=== PATIENT | male | born 1940 | race Caucasian/White ===

== ENCOUNTER → 2018-06-13 | Day surgery (SDC) | payer OTHER ==
[2018-05-05 13:21] VITALS: Ht 188 cm; Wt 86.4 kg
[~2018-06-13] VITALS: Ht 188 cm; Wt 86.4 kg
[~2018-06-13] MED LIST: 500ML BSS 0.3ML EPI 1:1000PF IRRIG ONE; ACETAMINOPHEN 325 MG TAB PO PRN; AMVISC PLUS 0.8ML SYRINGE INT OCU ONE; ATROPINE SULFATE 0.1 MG/ML 5ML SYR IV PRN; BRIMONIDINE TART 0.2% OP SOLN PER DROP CHARGE ONE; BSS FLUSH ONE; CALC500C70 PO; ENDOCOAT 0.85ML SYRINGE INT OCU ONE; EpHEDrine SULFATE INJ 50 MG/ML AMP IV PRN; EpINEphrine INJ 1MG/ML AMP 1 MG/ML AMP ONE; FENTANYL CITRATE INJ 50 MCG/1 ML 2 ML VIAL ONE; HydrALAZINE HCL 20 MG/ML VIAL ONE; LACTATED RINGER'S 1000ML 500 ML IV SCH; LIDOCAINE 4% OP SOLN DROP CHARGE ONE; LIDOCAINE 4% OP SOLN DROP CHARGE OPR SCH; LIDOCAINE HCL 1% MPF 2 ML VIAL ONE; LISI40TA PO; MIDAZOLAM HCL 1 MG/ML 2ML VIAL ONE; MOXIFLOXACIN OPH SOLN PER DROP CHARGE ONE; MULT-506 PO; POVIDONE-IODINE OP SOLN 30 ML BTL ONE; PROPARACAINE 0.5% OP SOLN PER DROP CHARGE OPR SCH; SILD100T PO; TOBRAMYCIN/DEXAMETHASONE OPH OINT PER APPLN CHARGE ONE; VITA400C28 PO
--- NOTE | 2018-06-13 09:53 | History & Physical Bridge - [place] ---
H&P Re-Evaluation Bridge Note: I have examined the patient, reviewed the History & Physical and in the interval since the performance of the History & Physical I have noted the following changes of clinical significance: No changes noted
[2018-06-13] MEDS: PHENYLEPHRINE HCL 2.5% OP SOLN PER DROP CHARGE OPR SCH ×2 (10:07→10:12)
[2018-06-13] MEDS: TROPICAMIDE 1% OP SOLN PER DROP CHARGE OPR SCH ×2 (10:08→10:13)
[2018-06-13] MEDS: CYCLOPENTOLATE HCL 1% OP SOLN PER DROP CHARGE OPR SCH ×2 (10:09→10:14)
[2018-06-13] MEDS: KETOROLAC 0.5% OP SOLN PER DROP CHARGE OPR SCH ×2 (10:10→10:15)
[2018-06-13] MEDS: MOXIFLOXACIN OPH SOLN PER DROP CHARGE OPR SCH ×2 (10:11→10:24)
--- NOTE | 2018-06-13 11:27 | [facility] Operative Report ---
Operative Report Operative Date Jun 13, 2018. Pre-Operative Diagnosis Cataract Right Eye Post-Operative Diagnosis Same as Pre Op Procedure(s) Performed Right Cataract Phacoemulsification With Intraocular Lens Implant Surgeon Dr. Key [employer] Ii Assembler Surgeon(s) none Estimated Blood Loss 0ml Findings cataract right eye Specimens None Drains None Anesthesia Type MAC Complication(s) none Disposition no Recovery Room / PACU Indications decreased vision right eye Description of Procedure After informed consent was obtained in the holding area the patient was wheeled back to the operating room where cardiac monitoring leads and oxygen by nasal cannula was administered by Anesthesia. Gentle IV sedation was given, and the patient's right eye was prepped and draped in usual sterile fashion. A wire lid speculum was placed into the right eye and the operating microscope was swung into position. Using 0.12 forceps and a Supersharp blade a paracentesis port was made 2 o'clock hours away from the 9 o'clock position of the patient's right eye. 1% non-preserved Lidocaine was then injected into the anterior chamber for anesthesia. A 2.0 mm keratotome blade was then used to make a shelved clear corneal incision at the 9 o'clock position of the right eye. Amvisc was injected into the anterior chamber and a cystotome and Utrata forceps were used to perform a curvilinear capsulorrhexis. BSS on a hydrodissection cannula was used to hydrodissect the lens nucleus away from the capsular bag. The phacoemulsification handpiece was then used in a stop and chop fashion to remove the lens nucleus. The irrigation and aspiration handpiece was then used to remove the residual cortical material. Amvisc was injected into the capsular bag and anterior chamber and a Bausch [employer] Lomb MX60E 19.5 Diopter intraocular lens was injected into the capsular bag. Irrigation and aspiration handpiece was used to remove the residual viscoelastic material. The wounds were hydrated and noted to be watertight. The wire lid speculum was removed from the eye. Vigamox, Brimonidine, and TobraDex ointment were placed on the eye and it was shielded. It should be noted that EndoCoat was used extensively during the case to protect the cornea endothelium. DISPOSITION: The patient tolerated the procedure well and was wheeled to the post anesthesia care unit in stable condition. I attest to the content of the Intraoperative Record and any orders documented therein. Any exceptions are noted below. I attest to the content of the Intraoperative Record and any orders documented therein. Any exceptions are noted below.
--- NOTE | 2018-06-13 11:29 | Discharge Instructions-SurgCtr ---
Discharge Instructions Date of Service Jun 13, 2018. Visit Reason for Visit: Cataract Right Eye Discharge Discharge Diagnosis / Problem: cataract right eye Discharge Goals Goal(s): Improve function Activity Recommendations Activity Limitations: per Instructions/Follow-up section Lifting Limitations: no more than 5 pounds Anesthesia . Post Anesthesia Instructions: If you have had General Anesthesia or IV Sedation: * Do not drive today. * Resume driving when surgeon permits. * Do not make important decisions or sign legal documents today. * Call surgeon for: 1. Temperature elevations greater than 101 degrees F. 2. Uncontrollable pain. 3. Excessive bleeding. 4. Persistent nausea and vomiting. 5. Medication intolerance (nausea, vomiting or rash). * For nausea and vomiting use only clear liquids such as: tea, soda, bouillon until nausea subsides, then gradually increase diet as tolerated. * If you have any concerns or questions, call your surgeon's office. If physician is unavailable and it is an emergency, call 911 or go to the nearest emergency room. . Instructions / Follow-Up Instructions / Follow-Up ACTIVITY RECOMMENDATIONS: * Light activities * You may walk outside, read, watch television. * Mild irritation and blurred vision are common for the first few days, redness around the white part of the eye is common. MEDICATIONS: Resume previous medications unless instructed otherwise by your surgeon. Eye drops (today and tomorrow): Cipro - one drop in operative eye every 2 hours while awake Prednisolone 1% - one drop in operative eye every 2 hours while awake Ketorolac - one drop in operative eye every 2 hours while awake SPECIAL CARE INSTRUCTIONS: * If any problems or concerns, please call Dr. Key's office at . * Keep plastic shield taped over eye to sleep at night. * Keep plastic shield taped over eye except to administer eye drops. * Keep plastic shield on until office visit the following day. FOLLOW UP VISIT: Follow-up with Dr. Key in the [place] office as scheduled. If not already scheduled, please call the office at . Diet Recommendations Home Diet: resume previous diet Procedures Procedures Performed: Right Cataract Phacoemulsification With Intraocular Lens Implant Pending Studies Studies pending at discharge: no Medical Emergencies . Who to Call and When: Medical Emergencies: If at any time you feel your situation is an emergency, please call 911 immediately. . Non-Emergent Contact Non-Emergency issues call your: D[employer] . . "Provider Documentation" section prepared by Adan Key. .
--- NOTE | 2018-06-13 11:39 | Anesthesia Progress Nt - [facility] ---
Anesthesia Post Op Note Date & Time Jun 13, 2018 at 11:39 Vital Signs Pain Intensity: 0 Vital Signs Past 12 Hours Date Time Temp Pulse Resp B/P (MAP) Pulse Ox O2 Delivery O2 Flow Rate FiO2 06/13/18 11:36 37 73 14 152/81 (104) 98 Room Air 06/13/18 09:53 36.7 56 16 145/94 (111) 99 Room Air Notes Mental Status: alert / awake / arousable, participated in evaluation Nausea / Vomiting: adequately controlled Pain: adequately controlled Airway Patency, RR, SpO2: stable & adequate BP & HR: stable & adequate Hydration State: stable & adequate Anesthetic Complications: no major complications apparent
[2018-06-13 11:51] VITALS: BP 136/72; PULSE 54; O2SAT 97
== END | disposition home or self-care (01) ==
LOC: X.SURG 09:10
PROVIDERS: ATTEND Ophthalmology
DX: H26.9 Unspecified cataract (principal); Z98.42 Cataract extraction status, left eye; Z96.1 Presence of intraocular lens; I10 Essential (primary) hypertension; Z88.5 Allergy status to narcotic agent; Z88.8 Allergy status to other drugs, medicaments and biological substances

== ENCOUNTER 2019-09-29 07:33 | Inpatient (IN) ==
--- NOTE | 2019-08-29 14:24 | PAT Medication Instructions ---
Medication Instructions Date of Service August 29, 2019 Home Medications lisinopril 40 mg PO QAM multivitamin 1 tab PO QAM sildenafil [Viagra] 100 mg PO DAILY PRN calcium carbonate-vitamin D3 1 tab PO QAM cyanocobalamin (vitamin B-12) [Vitamin B-12] 500 mcg PO QAM magnesium 250 mg PO QAM turmeric root extract 500 mg PO QAM vitamin E 400 unit PO QAM zinc 50 mg PO QAM STOP taking 2 weeks before surgery (or as soon as possible if surgery is within 2 weeks) turmeric root extract 500 mg PO QAM vitamin E 400 unit PO QAM DO NOT take the morning of surgery lisinopril 40 mg PO QAM multivitamin 1 tab PO QAM sildenafil [Viagra] 100 mg PO DAILY PRN calcium carbonate-vitamin D3 1 tab PO QAM cyanocobalamin (vitamin B-12) [Vitamin B-12] 500 mcg PO QAM magnesium 250 mg PO QAM zinc 50 mg PO QAM Other Notes If you have any questions please call us at [phone] or [phone] or [phone] or [phone]
--- NOTE | 2019-08-30 10:52 | Anesthesiology Consultation ---
Date of Service August 30, 2019 Assessment & Plan (1) Encounter for pre-operative examination: - Awaiting review preop testing (labs, EKG, CXR). - Awaiting surgeon-ordered PCP preop evaluation (Tammy Landaverde PAC). - S/P Left TKA: 09/02/18: SAB at L3-L4 + PNB at [facility] Chart Review Chart Review: Patient seen in Pre Admission Testing Teaching & Discussion Pre-Anesthesia Teaching/Discussion Notes: Instructed NPO after midnight before surgery,except medications with 15 cc of water. Medication instructions provided according to the PAT guidelines. History Surgery Operation Date: 09/29/19 07:15 Proposed Procedures p Left STAR Total Ankle - Ramirez Guillen DO s Percutaneous Tendoachilles Lengthening, Application of Platelet Rich Plasma - Ramirez Guillen DO Height/Weight Height: 6 ft 1 in Weight: 81.6 kg Allergies Allergy/AdvReac Type Severity Reaction Status Date / Time celecoxib Allergy Intermediate RASH Verified 08/17/19 11:44 hydrocodone Allergy Intermediate RASH/ITCHIN Verified 08/17/19 11:44 G oxycodone Allergy Intermediate RASH/ITCHIN Verified 08/17/19 11:44 G Medications Home Medications Medication Instructions Recorded Confirmed Last Taken lisinopril 40 mg PO QAM 07/27/18 08/17/19 09/01/18 07:30 multivitamin 1 tab PO QAM 07/27/18 08/17/19 09/01/18 07:30 sildenafil [Viagra] 100 mg PO DAILY PRN 07/27/18 08/17/19 Unknown calcium carbonate-vitamin D3 1 tab PO QAM 08/17/19 08/17/19 Unknown cyanocobalamin (vitamin B-12) 500 mcg PO QAM 08/17/19 08/17/19 Unknown [Vitamin B-12] magnesium 250 mg PO QAM 08/17/19 08/17/19 Unknown turmeric root extract 500 mg PO QAM 08/17/19 08/17/19 Unknown vitamin E 400 unit PO QAM 08/17/19 08/17/19 Unknown zinc 50 mg PO QAM 08/17/19 08/17/19 Unknown Past Medical History Medical History Hypertension Osteoarthritis Exercise / Class Metabolic Activity II 4-5 Yardwork/Stairs/Walk up hill (one flight of stairs (no chest pain/no sob)) Past Surgical History Surgical History History of cataract extraction with lens replacement B/L History of laminectomy LUMBAR History of retinal detachment SURGICAL REPAIR - LEFT History of total knee replacement Left TKA: 09/02/18: SAB at L3-L4 + PNB at [facility] History of total right knee replacement Hx of colonoscopy Past Anesthesia History No Hx of Anesthesia Complications and No Family Hx of Anesthesia Complications History of PONV No Hx of PONV and No Hx of Motion Sickness Social History Smoking Status: Never smoker Do You Dip or Chew Tobacco: No Hx Alcohol Use: Yes Alcohol type: beer alcohol intake frequency: a few times a month Hx Substance Use: No substance use type: does not use Review of Systems Patient denies chest pain, shortness of breath, dyspnea on exertion, reflux, cough, wheezing, palpitations. Physical Exam Vital Signs VITALS BP 155/80 P 61 TEMP 97.9 SP02 98%RA RESP 18 PHYSICAL Full neck and c-spine range of motion. Full TMJ range of motion. TMD 3.5 finger breaths Mallampati Score 1 Dentition: full dentures on upper, several missing on lower Lungs: clear throughout to auscultation Cardiac: regular rate and rhythm, II/ systolic murmur Spine: normal Carotid arteries: negative bruit Extremities: no edema Testing Stress Test Date: 05/21/16 Type: exercise Findings: + WNL Resting EF: 61% Resting LV Function: normal Valvular Disease: MR (Mild) Negative for inducible ischemia by ECG and ECHO criteria. Patient denied chest discomfort reporting only shortness of breath at peak exercise. Baseline EKG demonstrates mild non specific ST abnormality. Stress EKG demonstrates upsloping ST segment change not meeting the criteria for ischemia. Mild aortic sclerosis without stenosis. Mild AVR. Gradient across aortic valve is mildly increased. Mild TR is present. Mild WA.
--- NOTE | 2019-08-30 11:44 | XRay Report ---
XR chest Pre-admission PA/Lat CLINICAL HISTORY: 78 years-old Male presenting with preoperative assessment, asymptomatic. TECHNIQUE: PA and lateral views of the chest were obtained. COMPARISON: 08/01/2018. FINDINGS: Cardiomediastinal silhouette normal. Lungs are hyperinflated. No focal opacity. No pleural effusion o r pneumothorax. Degenerative changes of the thoracic spine. Upper abdomen normal. IMPRESSION: 1. Findings suggest emphysema. No focal infiltrate to suggest pneumonia. Electronically signed by: Benton Fernandez M.D. 08/30/2019 11:42 AM
[2019-08-30 12:06] LABS: Basophils # (auto) 0.04 K/uL (0-0.2); Basophils % (auto) 0.6 %; Eosinophils # (auto) 0.12 K/uL (0-0.5); Eosinophils % (auto) 1.8 %; Hematocrit (blood only) 43.1 % (42-52); Hemoglobin 14.4 g/dL (14.0-18.0); Immature Granulocytes # (auto) 0.01 K/uL (0.00-0.02); Immature Granulocytes % (auto) 0.2 %; Lymphocytes # (auto) 1.68 K/uL (1.2-3.4); Lymphocytes % (auto) 25.7 %; Mean Corpuscular Hemoglobin 31.4 pg (25-34); Mean Corpuscular Hgb Conc 33.4 g/dL (32-36); Mean Corpuscular Volume 93.9 fL (80-100); Mean Platelet Volume 10.5 fL (7.4-10.4); Monocytes # (auto) 0.57 K/uL (0.11-0.59); Monocytes % (auto) 8.7 %; Neutrophils # (auto) 4.11 K/uL (1.4-6.5); Platelet Count 230 K/uL (130-400); RDW Standard Deviation 48.1 fL (36.4-46.3); Red Blood Count 4.59 M/uL (4.7-6.1); White Blood Count 6.53 K/uL (4.8-10.8)
[2019-08-30 12:12] LABS: Albumin Level 3.8 gm/dl (3.4-5.0); BUN Creatinine Ratio 17.7 (10-20); Calcium 9.1 mg/dl (8.5-10.1); Creatinine Clr Calc Pharmacy 66.2 ml/min; Est GFR (African American) 79.3; Est GFR (Non-African American) 68.4; Potassium 4.1 mmol/L (3.5-5.1)
[2019-08-30 12:25] LABS: Partial Thromboplastin Time 25.9 Seconds (21.0-31.0); Prothrombin Time 10.5 Seconds (9.0-12.0)
[2019-08-30 12:46] LABS: Estimated Average Glucose 117 mg/dl; Hemoglobin A1C 5.7 % (4.5-5.6)
[2019-08-30 16:35] LABS: Appearance Urine Clear (Clear); Bilirubin Urine Negative (Negative); Blood Urine Negative (Negative); Color Urine Yellow; Glucose Urine UA Negative (Negative); Ketones Urine Negative (Negative); Leukocyte Esterase Urine Negative (Negative); Nitrite Urine Negative (Negative); Protein Urine Negative (Negative); Specific Gravity Urine 1.009 (1.000-1.030); Urobilinogen Urine Negative (Negative); pH Urine 7.5 (4.5-7.5)
--- NOTE | 2019-09-28 17:46 | History & Physical Report ---
Date of Service September 28, 2019 Assessment & Plan (1) Osteoarthritis of ankle, left: Schedule a Left STAR Total Ankle, Percutaneous Tendoachilles Lengthening, Application of Platelet Rich Plasma. All potential risks, benefits, complications, alternatives, and rehab have been discussed with the patient and he wishes to proceed. He will be scheduled for 09.29.19 with plan for ASA 81 mg BID x 4 wks for DVT prophylaxis. (2) Acquired valgus deformity of left ankle: (3) Achilles tendon contracture, left: History of Present Illness Chief Complaint: left ankle pain Primary Care Provider: Tammy Landaverde PA-C This is a patient with chronic left ankle DJD that has been treated conservatively for many years. He has now failed conservative management, his pain has worsened affecting his ADL's. He is now being set up for surgical management. Allergies Allergy/AdvReac Type Severity Reaction Status Date / Time celecoxib Allergy Intermediate RASH Verified 08/17/19 11:44 hydrocodone Allergy Intermediate RASH/ITCHIN Verified 08/17/19 11:44 G oxycodone Allergy Intermediate RASH/ITCHIN Verified 08/17/19 11:44 G Home Medications Home Medications Medication Instructions Recorded Confirmed Type lisinopril 40 mg PO QAM 07/27/18 08/17/19 History multivitamin 1 tab PO QAM 07/27/18 08/17/19 History sildenafil [Viagra] 100 mg PO DAILY PRN 07/27/18 08/17/19 History calcium carbonate-vitamin D3 1 tab PO QAM 08/17/19 08/17/19 History cyanocobalamin (vitamin B-12) 500 mcg PO QAM 08/17/19 08/17/19 History [Vitamin B-12] magnesium 250 mg PO QAM 08/17/19 08/17/19 History turmeric root extract 500 mg PO QAM 08/17/19 08/17/19 History vitamin E 400 unit PO QAM 08/17/19 08/17/19 History zinc 50 mg PO QAM 08/17/19 08/17/19 History Past Med/Surg History Medical History Hypertension Osteoarthritis Surgical History History of cataract extraction with lens replacement B/L History of laminectomy LUMBAR History of retinal detachment SURGICAL REPAIR - LEFT History of total knee replacement Left TKA: 09/02/18: SAB at L3-L4 + PNB at [facility] History of total right knee replacement Hx of colonoscopy Social History Preferred Language: Tunisian Communication Ability: Effective Cemetery Warden Required: No Beliefs That Will Affect Care: None Current Living Situation: Spouse Feels Safe at Home: Yes Safety Concerns: Feels Safe At This Time Smoking Status: Never smoker Do You Dip or Chew Tobacco: No ; Second Hand Exp osure: Yes (WORKING AND SOCIALLY IN PAST) ; Hx Alcohol Use: Yes Alcohol type: beer Hx Substance Use: No Physical Exam Constitutional: well developed and well nourished; no acute distress ENMT: external ear and nose normal, oropharynx normal Neck: trachea midline, no thyromegaly Respiratory: normal respiratory effort, lungs clear to auscultation Cardiovascular: Rate/Rhythm: regular rate and regular rhythm Gastrointestinal (Abdomen): normal bowel sounds, soft, nontender, no hepatosplenomegaly Musculoskeletal: Gait: + antalgic gait (left) Shoulder: + joint line tenderness (anterior left ankle) Ankle: + deformity (left ankle valgus defor mity), + limited ROM of ankle (left, particularly with dorsiflexion), + ankle ROM with crepitation (left) and + joint line tenderness (anterior left ankle); no skin erythema and no ecchymosis Skin: no rashes, warm and dry Neurologic: normal touch/pain/proprioception Psychiatric: A+Ox3, euthymic affect Lymphatic: no cervical or axillary lymphadenopathy
[~2019-09-29 07:33] MED LIST changes: -500ML BSS 0.3ML EPI 1:1000PF IRRIG ONE; -ACETAMINOPHEN 325 MG TAB PO PRN; +ACETAMINOPHEN 500 MG TAB PO SCH; -AMVISC PLUS 0.8ML SYRINGE INT OCU ONE; -ATROPINE SULFATE 0.1 MG/ML 5ML SYR IV PRN; -BRIMONIDINE TART 0.2% OP SOLN PER DROP CHARGE ONE; -BSS FLUSH ONE; -CALC500C70 PO; +CEFAZOLIN 2000MG 2,000 MG/15 ML SYR IV SCH; +CeleBREX 200 MG CAP PO SCH; -ENDOCOAT 0.85ML SYRINGE INT OCU ONE; +EPINEPHrine INJ 1 MG/ML AMP ONE; -EpHEDrine SULFATE INJ 50 MG/ML AMP IV PRN; -EpINEphrine INJ 1MG/ML AMP 1 MG/ML AMP ONE; +FAMOTIDINE 20 MG TAB PO SCH; -FENTANYL CITRATE INJ 50 MCG/1 ML 2 ML VIAL ONE; +GABAPENTIN 300 MG CAP PO SCH; -HydrALAZINE HCL 20 MG/ML VIAL ONE; -LACTATED RINGER'S 1000ML 500 ML IV SCH; -LIDOCAINE 4% OP SOLN DROP CHARGE ONE; -LIDOCAINE 4% OP SOLN DROP CHARGE OPR SCH; -LIDOCAINE HCL 1% MPF 2 ML VIAL ONE; -LISI40TA PO; +LR 15ML/HR IV SCH; +METOCLOPRAMIDE HCL 10 MG TABLET PO SCH; -MIDAZOLAM HCL 1 MG/ML 2ML VIAL ONE; -MOXIFLOXACIN OPH SOLN PER DROP CHARGE ONE; -MULT-506 PO; -POVIDONE-IODINE OP SOLN 30 ML BTL ONE; -PROPARACAINE 0.5% OP SOLN PER DROP CHARGE OPR SCH; +ROPIVACAINE 0.5% 5 MG/ML 30 ML VIAL ONE; -SILD100T PO; -TOBRAMYCIN/DEXAMETHASONE OPH OINT PER APPLN CHARGE ONE; -VITA400C28 PO; +dexAMETHasone 4 MG TAB PO SCH
--- NOTE | 2019-09-29 09:27 | History & Physical Bridge Note ---
Date of Service September 29, 2019 History & Physical Bridge Note I have examined the patient, reviewed the History & Physical and in the interval since the performance of the History & Physical I have noted the following changes of clinical significance: no changes noted
[2019-09-29] MEDS ORDERED: LIDOCAINE HCL 2% 2 ML VIAL/AMP(20MG/ML) INFIL ONE (10:01)
[2019-09-29] MEDS ORDERED: fentaNYL citrate 100 MCG/2 ML VIAL ONE ×2 (10:01→11:23)
[2019-09-29] MEDS ORDERED: PROPOFOL IV EMULSION 10 MG/ML 20 ML VIAL IV ONE (10:01)
[2019-09-29] MEDS ORDERED: MIDAZOLAM HCL 1 MG/ML 2ML VIAL ONE (10:01)
[2019-09-29] MEDS ORDERED: ONDANSETRON INJ 2 MG/ML 2 ML VIAL ONE (10:02)
[2019-09-29] MEDS ORDERED: SODIUM CHLORIDE 0.9% INJ 10 ML VIAL ONE (10:17)
[2019-09-29] MEDS ORDERED: ONDANSETRON INJ 2 MG/ML 2 ML VIAL IV PRN ×2 (10:18→15:44)
[2019-09-29] MEDS ORDERED: ATROPINE SULFATE 0.1 MG/ML 10ML SYR IV PRN (10:18)
[2019-09-29] MEDS ORDERED: fentaNYL citrate 100 MCG/2 ML VIAL IV PRN (10:18)
[2019-09-29] MEDS ORDERED: LABETALOL HCL IV 5 MG/ML 20ML IV PRN (10:18)
[2019-09-29] MEDS ORDERED: CALCIUM CHLORIDE 10% 10 ML SYR IV ONE (10:24)
[2019-09-29] MEDS ORDERED: BACITRACIN INJ 50,000 UNIT VIAL ONE (10:25)
[2019-09-29] MEDS ORDERED: THROMBIN 5000 UNITS KIT ONE (10:25)
[2019-09-29] MEDS ORDERED: DEXAMETHASONE SOD INJ 4 MG/ML VIAL ONE (11:17)
[2019-09-29] MEDS ORDERED: ROCURONIUM BROMIDE 10 MG/ML 5 ML VIAL ONE (11:17)
[2019-09-29] MEDS ORDERED: LABETALOL HCL IV 5 MG/ML 20ML IV ONE (13:05)
--- NOTE | 2019-09-29 14:14 | Fluoroscopy Report ---
FL ankle LT min 3V RTN CLINICAL HISTORY: LEFT TOTAL ANKLE COMPARISON STUDY: None FLUOROSCOPY TIME: 125 seconds. NUMBER OF FLUOROSCOPIC IMAGES: 2 FINDINGS: 2 intraoperative fluoroscopic spot images reveal postsurgical changes of a total left ankle arthroplasty. There is no dislocation. IMPRESSION: Intraoperative fluoroscopic spot images demonstrating a total left ankle arthroplasty Electronically signed by: Vinay Mayorga M.D. 09/29/2019 2:13 PM
--- NOTE | 2019-09-29 14:22 | Post Operative Brief Note ---
Immediate Post Op Note v1 Date of Surgery September 29, 2019 Pre & Post Diagnosis Operation Date: 09/29/19 10:35 Pre-Op Diagnosis: Left Ankle & Foot Osteoarthritis, Degenerative joint disease ankle, Valgus Deformity ankle, Achilles Tendon Contracture Post-Op Diagnosis: Left Ankle & Foot Osteoarthritis, Degenerative joint disease ankle, Valgus Deformity ankle, Achilles Tendon Contracture I identified the patient and participated in the time-out.: Yes Procedure Operation Date: 09/29/19 10:35 Actual Procedures p Left STAR Total Ankle Replacement,(Left) - Ramirez Guillen DO s Percutaneous Tendoachilles Lengthening, Application of Platelet Rich Plasma(Left) - Ramirez Guillen DO Surgeon Ramirez Guillen DO Planning Coordinator Pepito Martin PA-C Estimated Blood Loss 10 Findings Consistent with Post-Op Diagnosis Specimens None Drains Hemovac Drain (10fr, 400cc) Anesthesia Type General Regional Complications none Disposition Accompanied Patient To Recovery: No Disposition: Recovery Room Overlapping Procedure I was present for: the critical portions of procedure. I was immediately available: during the entire case.
--- NOTE | 2019-09-29 15:35 | XRay Report ---
XR ankle LT min 3V routine CLINICAL HISTORY: post op left total ankle replacement COMPARISON: None. DISCUSSION: Anatomic alignment post ankle arthroplasty. Expected soft tissue postoperative change. Al ignment is anatomic. Expected soft tissue edematous change. IMPRESSION: Anatomic alignment post left ankle arthroplasty. The above report was generated using voice recognition software. It may contain grammatical, syntax or spelling errors. Electronically signed by: Urbano Meléndez M.D. 09/29/2019 3:34 PM
[2019-09-29] MEDS ORDERED: METOCLOPRAMIDE HCL INJ 5 MG/ML 2 ML VIAL IV PRN (15:44)
[2019-09-29] MEDS ORDERED: TRAMADOL HCL 50 MG TABLET PO PRN (15:44)
[2019-09-29] MEDS ORDERED: ALUMINUM/MAGNESIUM SUSP 30 ML UDC PO PRN (15:44)
[2019-09-29] MEDS ORDERED: NON-FORMULARY MEDICATION (Sildenafil [Viagra] 100 MG) PO PRN (15:44)
[2019-09-29] MEDS ORDERED: TAMSULOSIN HCL 0.4 MG CAP PO PRN (15:44)
[2019-09-29] MEDS ORDERED: HYDROmorphone INJ 0.5 MG/0.5 ML SYR IV PRN (15:44)
[2019-09-29] MEDS ORDERED: MAGNESIUM HYDROXIDE SUSP 30 ML UDC PO PRN (15:44)
[2019-09-29] MEDS ORDERED: bisacodyL 10 MG SUPP PR PRN (15:44)
[2019-09-29] MEDS ORDERED: NALOXONE HCL 0.4 MG/1 ML VIAL/CARP IV PRN (15:44)
[2019-09-29] MEDS: SODIUM CHLORIDE 0.9% 1000ML 1,000 ML IV SCH (15:45)
--- NOTE | 2019-09-29 15:49 | Anesthesiology Progress Note ---
Date of Service September 29, 2019 Anesthesia Post Procedure Vital Signs Vital Signs: Temp Pulse Pulse Resp BP Pulse Ox 09/29/19 15:25 36.6 C 72 16 130/80 95 09/29/19 15:15 75 16 140/84 95 09/29/19 15:05 82 18 153/86 H 100 09/29/19 14:55 91 H 18 147/85 H 98 09/29/19 14:46 36.4 C L 82 18 133/78 97 09/29/19 09:00 36.4 C L 58 L 18 187/93 H 97 Transfer of Care Handoff Completed per policy Notes Mental Status: alert / awake / arousable and participated in evaluation Patient Amnestic to Procedure: Yes Nausea / Vomiting: adequately controlled Pain: adequately controlled Airway Patency, RR, SpO2: stable & adequate BP & HR: stable & adequate Hydration State: stable & adequate Anesthetic Complications: no major complications apparent and Pt Satisfied with anesthetic care
--- NOTE | 2019-09-29 16:19 | Operative Report ---
DATE OF OPERATION: 09/29/2019 PREOPERATIVE DIAGNOSES: 1. Left ankle degenerative joint disease. 2. Osteoarthritis, left ankle. 3. Achilles tendon contracture. POSTOPERATIVE DIAGNOSES: 1. Left ankle degenerative joint disease. 2. Osteoarthritis, left ankle. 3. Achilles tendon contracture. PROCEDURES: 1. Left STAR total ankle replacement. 2. Percutaneous tendo Achilles lengthening. 3. Application of platelet rich plasma concentrate, left ankle. SURGEON: Ramirez Guillen DO. OFFICE SECRETARY: Pepito Martin PA-C who was present for patient positioning, sterile prep and drape, management of retractors and instruments. He was present through the critical portions of the case including wound closure, application of sterile dressing and transport of the patient to recovery. ANESTHESIA: General LMA with regional block. SPECIMENS: None. DRAINS: Hemovac x1. COMPLICATIONS: None. BLOOD LOSS: 10 mL. PERTINENT HISTORY: This is a 78-year-old gentleman who has had chronic progressive and worsening left ankle degenerative joint disease with loss of function and compromise of activities of daily living for the last 2-3 years. He had initial injury approximately 25 years ago and had some degree of discomfort for over 15 years and then it began to steadily worsen over the last 5 years. He has been managed in our clinic for approximately a year and a half to 2 years with anti-inflammatories, both oral and topical steroid injections, use of an assistive device, use of a brace, modification of shoe wear, modification of daily activities, rest and observation. Radiographs demonstrate complete loss of articular cartilage of the tibiotalar joint with valgus deformity at the tibiotalar joint, marginal osteophytes, subchondral sclerosis and subchondral cysts. The patient was scheduled for surgery as indicated. All potential risks, benefits, complications, alternatives, rehab, potential for incomplete relief of symptoms, need for further surgery, DVT, PE, , persistent pain, swelling, scarring, weakness, neurovascular injury, wound complications, hardware failure, nonunion, malunion, bone fracture were discussed with the patient. The patient decided to proceed with procedure as indicated. PROCEDURE: The patient was taken to the operative suite after popliteal block was administered. The patient was placed supine on the operating room table. Tourniquet was applied over the right lower extremity. After the patient was anesthetized, LMA was placed. The left lower extremity was then sterilely prepped and draped in the usual sterile fashion [id number], elevated and exsanguinated with an Esmarch bandage, and tourniquet inflated to 350 mmHg. Next, a 15-blade scalpel incision made in the midline of the left ankle taking care to identify the tibialis anterior. The incision was made lateral to the tibialis anterior and centered over the extensor hallucis longus tendon. The incision was deepened through subcutaneous tissue. Meticulous hemostasis was achieved with electrocautery. Full-thickness skin flaps were developed. Superficial peroneal nerve was identified, retracted, and protected. Next, the extensor retinaculum was incised along the skin incision to the lateral aspect of the tibialis anterior. Tibialis anterior was retracted medially. The extensor hallucis longus and the neurovascular bundle beneath were retracted laterally. The small crossing vessels were cauterized. The anterior capsule was then incised in its midline and then elevated medially and laterally with electrocautery. Appropriate soft tissue retractors were placed carefully to maintain essentially zero skin tension on the superficial skin. After the capsule was elevated and retracted medially and laterally to visualize the medial and lateral malleoli clearly, rongeur was used to perform synovectomy and remove any excess debris and loose bodies. Next, the wound was irrigated and suctioned. Good visualization was obtained. At this point the anterior lip of hypertrophic bone was resected from the tibia with an osteotome and mallet followed by resection of a small osteophyte medially at the medial malleolus. Next, the tibial plafond could be clearly visualized. The neck of the talus was then rongeured down to the true neck of the talus after all hypertrophic osteophytes were excised. Next, attention was directed toward the proximal tibia at which point a 15-blade scalpel incision was made anterior of the tibial tubercle the inferior aspect using the external alignment guide as a guide for pin placement which was essentially in the midline of the tibia with a slight degree of plantar flexion. Guide was placed anteriorly using a small osteotome in the medial gutter of the ankle joint to blast furnace helper in alignment. Next, the small 2.4 mm pin was placed adjacent to the tibial tubercle and the alignment guide was placed approximately one fingerbreadth above the soft tissue and fastened there at approximately four notches medialized proximally. Next, the T-handle guide was placed anteriorly and then this was aligned with the small osteotome and placed in the medial gutter of the ankle joint to make this parallel and then also the orientation of the second ray of the foot was used to guide as well. Next, the more proximal alignment block was pinned unicortically followed by placement of the lateral alignment guide on the tibial alignment jig and the T-handle was removed. Distal cutting block was then fastened to the distal aspect of the tibial alignment guide and then x-rays obtained in AP and lateral projections of the ankle and tibia assuring appropriate alignment of the tibial alignment guide and the tibial cutting block. After appropriate alignment was established, the distal cutting block was then pinned in place with two 2.4 mm pins, one in the proximal and then secondarily in the distal aspect of the tibial cutting guide and the tibial cutting guide was aligned at the inferior aspect at the level of the tibial plafond. Next, after the tibial cutting blocks were aligned and confirmed, the medial and lateral saw capture pins were placed followed by resection of the distal tibia with a sagittal saw. The pins were removed and the distal cutting guide was then removed followed by removal of the distal tibial cut fragment after it was morselized with a small osteotome and resected with a rongeur. A cervical lamina trucker was placed in the ankle joint to open the ankle joint followed by resection of the posterior fragments from the distal tibia cut. Next, the talar cutting guide paddle was placed at the distal tibial cutting guide and fastened in place. The ankle was held in neutral dorsiflexion. Four pins were placed in the talar cutting block fixing the talus in medium size. Next, after the saw capture pins were placed, the sagittal saw was used to resect the superior aspect of the talus. The talar cutting block guide was then removed as well as the pins and talus. This was then followed by placement of datum guide which was initially placed as an extra small position with regard to position on the talus as well as orientation along the second ray. Central pin was placed and then the posterior capture cutting guide was attached and the anterior milling guide was also fastened with two football screws. Next, the anterior mill was used to resect the anterior aspect of the talar dome. Posterior cut was made. This jig was then removed followed by placement of the shoulder cutting guide and the reciprocating saw was just resect the shoulder portions of the talus using the laser cut line. This guide was then removed leaving the central pin followed by resection of the fragments using a small osteotome and mallet. This was then elevated and resected. Next, the window trial was firmly affixed to the superior aspect of the talus using fluoroscopic confirmation of alignment and position. Next, the central keel was drilled. The window trial was then removed following use of the central keel punch. This was also confirmed using fluoroscopic dyer assistant. The wound was copiously irrigated with pulsatile lavage with Bacitracin additive followed by suctioning of the talar component. Platelet-rich plasma was injected at this time at the undersurface of the implant as well as in the talar dome. The final talar component was impacted in place with fluoroscopic assistance. Next, a trial polyethylene 6 mm was placed in the joint and the posterior aspect of the tibia was measured both medially and laterally. A large tibial drill guide was then placed and fastened with two pins. This was confirmed with x-ray and then the barrel drills x 2 were performed making certain to aim proximally. Next, the barrel cutting jig was then used to perform the final punch medially and laterally. The trial plate was then removed after 10 mm polyethylene was sized. Next, the joint was copiously irrigated with pulsatile lavage followed by suctioning of all surfaces. The tibia was then injected with platelet-rich plasma as well as the superior aspect of the tibial final plate implant. This was then impacted in place with the trial polyethylene liner in place to ensure adequate positioning. Next, the final impactor was used to seat the tibial base tray flush with the anterior aspect of the tibia followed by bone grafting of the anterior barrel holes with local bone graft. This was impacted in place with a mallet and bone tamp. This then followed by confirmation with C-arm and then final polyethylene was inserted without difficulty. Excellent range of motion and stability was obtained. No liftoff was noted. The platelet-rich plasma was then sprayed within the joint and all surfaces and also into the subcutaneous tissue and deep soft tissue. A 10-Malawian single-lumen Hemovac drain was placed anterolaterally followed by closure of the ankle joint capsule with #1 Vicryl. The extensor retinaculum was closed using interrupted 2-0 Vicryl, the dermis closed buried 3-0 Vicryl, and skin was closed using 4-0 nylon. A sterile compressive bulky Ceferino Crenshaw plaster splint was applied overwrapped with an Mike wrap. Tourniquet was released. The patient was awakened and taken to recovery in stable condition. I attest to the content of the Intraoperative Record and any orders documented therein. Any exception s are noted below.
[2019-09-29] MEDS: KETOROLAC TROMETHAMINE 15 MG/ML VIAL IV SCH ×2 (18:03→22:47)
[2019-09-29] MEDS: CEFAZOLIN 2000MG 2,000 MG/15 ML SYR IV SCH (18:03)
[2019-09-29] MEDS ORDERED: SENNA 8.6 MG TAB PO SCH (21:00)
[2019-09-29] MEDS: ACETAMINOPHEN 500 MG TAB PO SCH (21:28)
[2019-09-29] MEDS: DOCUSATE SODIUM 100 MG CAP PO SCH (21:28)
[2019-09-29] MEDS: ASPIRIN 81 MG ECTAB PO SCH (21:28)
[2019-09-30] MEDS: SODIUM CHLORIDE 0.9% 1000ML 1,000 ML IV SCH (00:16)
[2019-09-30] MEDS: CEFAZOLIN 2000MG 2,000 MG/15 ML SYR IV SCH (03:21)
[2019-09-30 06:00] LABS: Hematocrit (blood only) 34.5 % (42-52); Hemoglobin 11.4 g/dL (14.0-18.0); Mean Corpuscular Hemoglobin 31.1 pg (25-34); Mean Platelet Volume 10.7 fL (7.4-10.4); Platelet Count 189 K/uL (130-400); RDW Standard Deviation 47.8 fL (36.4-46.3); Red Blood Count 3.67 M/uL (4.7-6.1); White Blood Count 15.42 K/uL (4.8-10.8)
[2019-09-30] MEDS: KETOROLAC TROMETHAMINE 15 MG/ML VIAL IV SCH ×2 (06:07→11:45)
[2019-09-30] MEDS: ACETAMINOPHEN 500 MG TAB PO SCH ×2 (06:07→13:46)
[2019-09-30 06:27] LABS: BUN Creatinine Ratio 19.5 (10-20); Calcium 8.4 mg/dl (8.5-10.1); Creatinine Clr Calc Pharmacy 64.9 ml/min; Est GFR (African American) 77.5; Est GFR (Non-African American) 66.9; Potassium 3.9 mmol/L (3.5-5.1)
[2019-09-30 07:34] VITALS: BP 153/75; PULSE 64; TEMP 97.7; O2SAT 96
--- NOTE | 2019-09-30 08:26 | Orthopedic Progress Note ---
Date of Service September 30, 2019 Assessment & Plan (1) Osteoarthritis of ankle, left: Begin PT and OT protocols today. We will recheck Hemovac drainage and possibly DC today. Patient states that he would like to go home and has help at home. We will recheck his progress today and see how he is doing. Subjective Patient is currently sitting up in bed awake and alert. He has no overt complaints. He denies pain and states that he still has numbness in his foot at this time. Denies any shortness of breath, chest pain, lightheadedness. He states that depending on how his therapy goes, he would like to go home today. Physical Exam Physical Exam: Dressings are clean, dry, and intact. Hemovac is present and latest amount of drainage was 75 mL's from the previous shift. Capillary refill is less than 2 seconds. He is unable to move the toes at this time and states that he has moderately decreased sensation in the toes. Results & Data Vital Signs (Past 12 Hours) Vital Signs Temp Pulse Resp BP Pulse Ox 09/30/19 07:30 36.5 C 64 18 153/75 H 96 09/30/19 03:45 36.6 C 86 18 151/76 H 97 09/29/19 23:30 36.5 C 56 L 16 143/77 H 96
[2019-09-30] MEDS ORDERED: NON-FORMULARY MEDICATION (Turmeric Root Extract 500 MG) PO SCH (09:00)
[2019-09-30] MEDS ORDERED: MULTIVITAMIN TAB PO SCH ×2 (09:00)
[2019-09-30] MEDS ORDERED: TOCOPHERYL, DL-ALPHA 400 UNITS CAP PO SCH (09:00)
[2019-09-30] MEDS ORDERED: CYANOCOBALAMIN 500 MCG TABLET (VITAMIN B-12) PO SCH (09:00)
[2019-09-30] MEDS ORDERED: ZINC SULFATE 220 MG CAPSULE PO SCH (09:00)
[2019-09-30] MEDS ORDERED: lisinopriL 40 MG TAB PO SCH (09:00)
[2019-09-30] MEDS ORDERED: CALCIUM 600MG + VIT D 400 IU TAB PO SCH (09:00)
[2019-09-30] MEDS ORDERED: MAGNESIUM OXIDE 400 MG TAB PO SCH (09:00)
[2019-09-30] MEDS: DOCUSATE SODIUM 100 MG CAP PO SCH (09:04)
[2019-09-30] MEDS: ASPIRIN 81 MG ECTAB PO SCH (09:04)
--- NOTE | 2019-09-30 10:09 | Anesthesiology Progress Note ---
Date of Service September 30, 2019 Anesthesia Post Procedure Vital Signs Vital Signs: Temp Pulse Pulse Resp BP Pulse Ox 09/30/19 07:30 36.5 C 64 18 153/75 H 96 09/30/19 03:45 36.6 C 86 18 151/76 H 97 09/29/19 23:30 36.5 C 56 L 16 143/77 H 96 09/29/19 18:45 36.5 C 90 18 149/80 H 98 09/29/19 17:52 36.4 C L 84 16 150/77 H 98 09/29/19 16:42 36.5 C 80 16 138/73 94 09/29/19 16:10 36.6 C 80 14 150/78 H 93 09/29/19 15:40 36.7 C 76 16 150/78 H 94 09/29/19 15:25 36.6 C 72 16 130/80 95 09/29/19 15:15 75 16 140/84 95 09/29/19 15:05 82 18 153/86 H 100 09/29/19 14:55 91 H 18 147/85 H 98 09/29/19 14:46 36.4 C L 82 18 133/78 97 Pain Intensity Left Ankle: Pain Intensity: 3 Notes Mental Status: alert / awake / arousable Patient Amnestic to Procedure: Yes Nausea / Vomiting: adequately controlled Pain: adequately controlled Airway Patency, RR, SpO2: stable & adequate BP & HR: stable & adequate Hydration State: stable & adequate Anesthetic Complications: no major complications apparent and Pt Satisfied with anesthetic care
--- NOTE | 2019-10-05 15:55 | Discharge Summary ---
Date of Service October 05, 2019 Admission HPI Per Admitting Provider This is a patient with chronic left ankle DJD that has been treated conservatively for many years. He has now failed conservative management, his pain has worsened affecting his ADL's. He is now being set up for surgical management. Principal Diagnosis left ankle osteoarthritis Discharge Exam Constitutional well developed and well nourished; no acute distress ENMT external ear and nose normal, oropharynx normal Neck trachea midline, no thyromegaly Respiratory normal respiratory effort, lungs clear to auscultation Cardiovascular Rate/Rhythm: regular rate and regular rhythm Gastrointestinal (Abdomen) normal bowel sounds, soft, nontender, no hepatosplenomegaly Musculoskeletal Gait: + antalgic gait (NWB LLE) Ankle: + deformity (left ankle valgus deformity) and + limited ROM of ankle (left--posterior/stirrup splint C/D/I); no skin erythema and no ecchymosis Skin no rashes, warm and dry Neurologic normal touch/pain/proprioception Psychiatric A+Ox3, euthymic affect Lymphatic no cervical or axillary lymphadenopathy Discharge Data Allergies Allergy/AdvReac Type Severity Reaction Status Date / Time celecoxib Allergy Intermediate RASH Verified 09/29/19 08:45 hydrocodone Allergy Intermediate RASH/ITCHIN Verified 09/29/19 08:45 G oxycodone Allergy Intermediate RASH/ITCHIN Verified 09/29/19 08:45 G Consultations 09/29/19 15:44 Consult Case Management - Discharge Planning Routine Procedures Performed Operation Date: 09/29/19 10:35 Actual Procedures p Left STAR Total Ankle,(Left) - Ramirez Guillen DO s Percutaneous Tendoachilles Lengthening, Application of Platelet Rich Plasma(Left) - Ramirez Guillen DO Ordered Studies 09/29/19 05:00 US - OR guided needle placemen Routine 09/29/19 10:35 FL ankle LT min 3V RTN Routine FL fluoroscopy <1hr Routine Hospital Course (1) Osteoarthritis of ankle, left: Patient underwent the above noted procedure and was admitted overnight for pain control and for PT to maintain NWB on the LLE. On POD #1, he was doing well. His pain was controlled and he was remaining NWB. His hemovac was d/c'd later on POD #1 and he was able to be discharged. Begin PT and OT protocols today. We will recheck Hemovac drainage and possibly DC today. Patient states that he would like to go home and has help at home. We will recheck his progress today and see how he is doing. Total Time Total Time Spent Total Time Spent (In Minutes): 30 Total Time Includes: Examination of the Patient, Discharge Planning and Medication Reconciliation Discharge Plan Discharge Items Patient Disposition: Home - Home Health Services Reason For Visit: LEFT ANKLE & FOOT OSTEOARTHRITIS, VALGUS DEFORMITY Discharge Diagnosis: left ankle osteoarthritis Activity: Per Instructions section Weightbearing: Left non-weightbearing Weightbearing Comment: with walker or crutches Non-emergency contact: Surgeon Call non-emergency contact if: your pain is not controlled, your pain is worsening and your temperature is above 101 Follow-up/Referrals: Amado Harden PA-C [Primary Care Provider] - Diet: Regular Addtl Attending Provider Instructions: ACTIVITY RECOMMENDATIONS: Limitations: No weight bearing to affected limb at all times. SPECIAL CARE INSTRUCTIONS: * Take Aspirin 81 mg every 12 hours for the next 6 weeks. * Some drainage onto the dressing is normal and is no cause for alarm. * Some swelling is natural especially after walking. * When resting, keep your foot elevated above the level of your heart. * Call [facility] if you notice: -Increased drainage -Fever over 101 degrees F -Severe constant pain BANDAGE: * Leave bandage/cast in place unless otherwise directed. * Keep bandage/cast dry at all times. FOLLOW UP VISIT WITH DR. GUILLEN If appointment is not already scheduled: Please call [facility] [place] after you get home today to schedule a follow-up appointment for [address] Guillen at . Pending Studies at Discharge: No Stand-Alone Forms: My [employer], Opioid Pain Management, Smoking Cessation Medications and DC Order Prescriptions: New aspirin [Ecotrin Low Strength] 81 mg Tablet,Delayed Release (Dr/Ec) 81 mg PO BID 30 Days Qty: 60 RF: 0 acetaminophen [Tylenol Extra Strength] 500 mg Tablet 1,000 mg PO Q8 14 Days Qty: 84 RF: 0 sennosides [Senokot] 8.6 mg Tablet 17.2 mg PO HS PRN (Reason: constipation) Qty: 30 RF: 0 Continued lisinopril 40 mg Tablet 40 mg PO QAM RF: 0 multivitamin Tablet 1 tab PO QAM RF: 0 sildenafil [Viagra] 100 mg Tablet 100 mg PO DAILY PRN (Reason: PRN) RF: 0 cyanocobalamin (vitamin B-12) [Vitamin B-12] 500 mcg Tablet 500 mcg PO QAM RF: 0 zinc 50 mg Tablet 50 mg PO QAM RF: 0 magnesium 250 mg Tablet 250 mg PO QAM RF: 0 vitamin E 400 unit Capsule 400 unit PO QAM RF: 0 calcium carbonate-vitamin D3 600 mg(1,500mg) -800 unit Tablet 1 tab PO QAM RF: 0 Discontinued turmeric root extract 500 mg Capsule 500 mg PO QAM RF: 0 Discharge Orders: Discharge Order (Routine); Ordered 09/30/19 Ordered By: Dereck Ya/Other Patient Handouts: Surgery Prevent DVT After Admission Data Admit Date/Time: 09/29/19 15:14 Attending Provider: Ramirez Guillen Admit Provider: Ramirez Guillen Primary Care Provider: Amado Harden Other Interventions: Discharge Summary Assessment (RN) Last Done: 09/30/19 13:47 DC Date/Time DO NOT enter until pt leaves facility: 09/30/19 14:36
== END 2019-09-30 14:36 | disposition home health service (06) | DRG 469 ==
LOC: ASU 07:33 → 3E 15:14
DX: Z88.5 Allergy status to narcotic agent; Z79.899 Other long term (current) drug therapy; M21.072 Valgus deformity, not elsewhere classified, left ankle; I10 Essential (primary) hypertension; Z96.653 Presence of artificial knee joint, bilateral; M19.072 Primary osteoarthritis, left ankle and foot; M67.02 Short Achilles tendon (acquired), left ankle